=== PATIENT | female | born 1990 | race Caucasian/White ===

== ENCOUNTER 2017-04-16 14:32 | Emergency (ER) | payer BC ==
[2017-04-16] MEDS ORDERED: Lidocaine 1% 30 ML SDV INJECT ONE (15:09)
--- NOTE | 2017-04-16 15:11 | EDM.PDOC ---
ED HPI GENERAL MEDICAL PROBLEM - General Stated Complaint: KNEE IS CUT, [id number] Time Seen by Provider: 04/16/17 15:09 Source of Information: Reports: Patient History Limitations: Reports: No Limitations - History of Present Illness INITIAL COMMENTS - FREE TEXT/NARRATIVE: cut by glass [employer] Right Knee Pain Score (Numeric/FACES): 4 - Related Data Allergies Allergy/AdvReac Type Severity Reaction Status Date / Time No Known Allergies Allergy Verified 04/16/17 15:28 Home Meds: Home Meds . [No Known Home Meds] 04/16/17 [History] Review of Systems - Review of Systems Review Of Systems: ROS reveals no pertinent complaints other than HPI. ED EXAM, GENERAL - Physical Exam Exam: See Below Exam Limited By: No Limitations General Appearance: Alert, WD/WN, No Apparent Distress Ears: Hearing Grossly Normal Throat/Mouth: Normal Voice, No Airway Compromise Head: Atraumatic Neck: Non-Tender, Full Range of Motion Respiratory/Chest: No Respiratory Distress Cardiovascular: Regular Rate, Rhythm GI/Abdominal: Soft, Non-Tender Extremities: Other (right knee 2" lac, NV wnl, ) Neurological: Alert, Oriented, Normal Cognition, Normal Gait, No Motor/Sensory Deficits Psychiatric: Normal Affect, Normal Mood Skin Exam: Warm, Dry Lymphatic: No Adenopathy ED TRAUMA EXTREMITY PROCEDURES - Laceration/Wound Repair Right Knee Lac/Wound Length In cm: 4 (right knee) Appearance: Subcutaneous, Linear, Clean Distal NVT: Neuro & Vascular Intact, No Tendon Injury Anesthetic Type: Local Local Anesthesia - Lidocaine (Xylocaine): 1% Plain Local Anesthetic Volume: 5cc Skin Prep: Chlorhexidine (Hibiciens) Saline Irrigation (cc's): 20 Exploration/Debridement/Repair: Wound Explored, No Foreign Material Found Closed With: Sutures Suture Size: 4-0 Suture Type: Interrupted Sterile Dressing Applied: Nurse Tetanus Status Addressed: Yes Complications: No Course - Vital Signs Last Recorded V/S: Last Vital Signs Temp 37.2 C 04/16/17 15:14 Pulse 106 H 04/16/17 15:14 Resp 18 04/16/17 15:14 BP 131/85 04/16/17 15:14 Pulse Ox 100 04/16/17 15:14 - Orders/Labs/Meds Meds: Medications Discontinued Medications Generic Name Dose Route Start Last Admin Trade Name Freq PRN Reason Stop Dose Admin Lidocaine HCl 30 ml 04/16/17 15:09 04/16/17 15:28 Xylocaine-Mpf 1% INJECT 04/16/17 15:10 30 ml ONETIME ONE Administration Departure - Departure Time of Disposition: 15:39 Disposition: Home, Self-Care 01 Condition: Good Clinical Impression: Laceration of knee Qualifiers: Encounter type: initial encounter Laterality: right Qualified Code(s): S81.011A - Laceration without foreign body, right knee, initial encounter - Discharge Information Instructions: Laceration Care, Adult, [id number] Forms: ED Department Discharge Additional Instructions: 1) keep wound clean dry covered 2) recheck if wound appears infected 3) suture removal 10 days
[2017-04-16 15:15] VITALS: BP 131/85
== END 2017-04-16 15:47 | disposition home or self-care (01) ==
LOC: DL.ED 14:32
DX: S81.011A Laceration without foreign body, right knee, initial encounter (principal); W25.XXXA Contact with sharp glass, initial encounter
CPT/HCPCS: 12002; 99282

== ENCOUNTER 2021-05-10 09:09 | Inpatient (IN) | payer BC ==
[2021-05-10] MEDS ORDERED: Sodium Chloride 0.9% 10 ML Syringe FLUSH PRN (09:18)
[2021-05-10] MEDS ORDERED: Tranexamic Acid 1,000 MG in Sodium Chloride 0.9% 100 ML IV PRN (09:18)
[2021-05-10] MEDS ORDERED: Citric Acid/Sodium Citrate Solution 30 ML Cup PO ONE (09:18)
[2021-05-10] MEDS ORDERED: Oxytocin/Normal Saline 30 UNIT/500 ML BAG IV SCH (09:30)
[2021-05-10] MEDS ORDERED: Lactated Ringers 1,000 ML IV SCH ×2 (09:30→15:15)
[2021-05-10] MEDS ORDERED: Oxytocin/Normal Saline 60 UNIT/1,000 ML BAG ONE (09:55)
[2021-05-10] MEDS: Lactated Ringers 1,000 ML IV SCH ×3 (10:00→18:07)
[2021-05-10] MEDS ORDERED: ceFAZolin 2 GM in Premix Bag 1 BAG IV ONE (10:00)
[2021-05-10] MEDS ORDERED: Oxytocin/Normal Saline 30 UNIT/500 ML BAG IV ONE (12:59)
[2021-05-10] MEDS ORDERED: Ondansetron 4 MG/2 ML SDV IVPUSH PRN (15:10)
[2021-05-10] MEDS ORDERED: Carboprost Tromethamine 250 MCG/1 ML Amp IM PRN (15:10)
[2021-05-10] MEDS ORDERED: Misoprostol 400 MCG (4 X 100 MCG TAB) RECTAL PRN (15:10)
[2021-05-10] MEDS ORDERED: ePHEDrine 50 MG/ML SDV IVPUSH PRN (15:10)
[2021-05-10] MEDS ORDERED: diphenhydrAMINE 50 MG/ML SDV IVPUSH PRN (15:10)
[2021-05-10] MEDS ORDERED: Methylergonovine 0.2 MG/1 ML Amp IM PRN (15:10)
[2021-05-10] MEDS ORDERED: Acetaminophen 325 MG Tab PO PRN (15:10)
[2021-05-10] MEDS ORDERED: Naloxone 2 MG/2 ML Syringe IVPUSH PRN (15:10)
[2021-05-10] MEDS ORDERED: Lactated Ringers 1,000 ML IV ONE (17:00)
[2021-05-10] MEDS ORDERED: Dexamethasone 4 MG/ML SDV IV ONE (17:00)
[2021-05-10] MEDS ORDERED: Ondansetron 4 MG/2 ML SDV IV ONE (17:00)
[2021-05-10] MEDS ORDERED: Ketorolac 30 MG/ML SDV IVPUSH ONE (17:00)
[2021-05-10] MEDS ORDERED: Morphine PF 1 MG/ML Amp ITHECAL ONE (17:00)
[2021-05-10] MEDS: Simethicone 80 MG Tab.Chew PO SCH ×2 (18:06→21:17)
[2021-05-10] MEDS: Ketorolac 30 MG/ML SDV IVPUSH SCH (18:06)
[2021-05-10] MEDS: Docusate Sodium 100 MG Cap PO PRN (21:17)
[2021-05-11] MEDS: Ketorolac 30 MG/ML SDV IVPUSH SCH ×2 (01:02→06:32)
[2021-05-11] MEDS: Docusate Sodium 100 MG Cap PO PRN ×2 (09:25→20:32)
[2021-05-11] MEDS: Prenatal Multivitamin with Calcium/Folic Acid/Iron Tab PO SCH (09:25)
[2021-05-11] MEDS: Simethicone 80 MG Tab.Chew PO SCH ×4 (09:25→20:32)
[2021-05-11] MEDS: Acetaminophen/oxyCODONE 325-5 MG Tab PO PRN ×3 (09:26→20:30)
[2021-05-11] MEDS: Ibuprofen 800 MG Tab PO PRN ×2 (14:42→22:51)
[2021-05-12] MEDS: Acetaminophen/oxyCODONE 325-5 MG Tab PO PRN ×5 (00:34→20:47)
--- NOTE | 2021-05-12 02:01 | PCM.HPR ---
H & P Addendum review - H & P Addendum Review Date of Original H & P: 05/03/21 Date Reviewed: 05/10/21 Time Reviewed: 10:00 Patient was Examined: No Changes
--- NOTE | 2021-05-12 02:12 | PCM.PRNOTE ---
- Free Text/Narrative Note: Section Operative Report Date of Surgery: 05/10/2021 Surgeon: Carlyn Pineda MD Hand Quilter: Dania Abdul MD Pre-Operative Diagnosis: at 39w1d Breech presentation Borderline oligohydramnios Post-Operative Diagnosis: Same Procedure Performed: Primary low transverse section Anesthesia: Spinal EBL: 400 mL IVF: 1500 mL Drains: Sher catheter with 450 mL of urine output Specimens: None Complications: None apparent Findings: Normal uterus, tubes, and ovaries. Indication and Consent: The patient presented to floor today for scheduled at term due to catarino ech presentation and desire for primary . The patient understood that the risks of section include, but are not limited to, visceral or vascular injury, infection, blood loss and need for blood transfusion, prolonged hospitalization, and reoperation. The patient again stated understanding and desired to proceed. All questions were answered. Procedure in Detail: The patient was taken to the operating room where spinal anesthesia was placed and found to be adequate. 2 grams of cefazolin (Ancef) were given for infection prophylaxis. She was then prepped and draped in routine fashion in dorsal supine position with a left almanzar tilt. Sher catheter and pneumoboots were placed. A Pfannenstiel skin incision was made with a scalpel. The incision was carried down to the fascia sharply. The fascia was incised and extended laterally. The superior aspect of the fascia was grasped with Chloe clamps; the underlying rectus muscle and pyramidalis was dissected off with sharp and blunt technique. In a similar fashion, the inferior aspect of the fascia was elevated with Chloe clamps and the rectus muscle was dissected off. Hemostasis was achieved with the Bovie. The rectus musculature was in the midline down to the level of the pubic symphysis. Pre-peritoneal fatty tissue was bluntly dissected to expose the peritoneum. The peritoneum was found to be free of adherent bowel or bladder tissue and entered bluntly. The peritoneal opening was then extended superiorly and inferiorly to the bladder reflection with good visualization of the bladder. The Binh retractor was inserted. Intraabdominal survey revealed scant, clear peritoneal fluid and thinned-out lower uterine segment. The vesicouterine peritoneum was opened with a pickup and mets, and the bladder flap was developed. The lower uterine segment was incised with a scalpel. The amniotic sac was ruptured with an Allis clamp and clear fluid was noted. The uterine incision was extended bluntly with lateral and upward traction. The fetus was in breech position. The feet were extracted through the incision first. The rump was elevated out of the maternal pelvis, sacrum anterior in position, with special attention paid to avoid using the uterine incision as a fulcrum. The fetus was delivered to the level of the scapula. A blue towel was wrapped around the fetus and then the fetus was then rotated 90 degree to facilitate sweeping the anterior arm across its face to deliver through the incision. The fetus was then rotated 180 degrees to deliver the other arm in a similar fashion. The Gentle fundal pressure was applied to keep the fetus's neck in flexed position as it was delivered through the incision. The was delivered with minimal difficulty. Bulb suctioning of the infant's nose and mouth was performed on the operative field. Cord blood was collected. The cord was clamped and cut in standard fashion, and the infant was handed over to the awaiting nursery staff. IV oxytocin was initiated to facilitate uterine contractions. The placenta was delivered intact with manual message of the uterine fundus along with gentle cord traction. The inside of the uterus was gently wiped with a lap sponge to assure complete removal of remaining products of conception. The uterine incision was closed with 0 -Vicryl suture in a running locked fashion. A second imbricating layer of 0-Monocryl was also placed. A figure-of-8 suture was used along the right edge of the incision to achieve hemostasis. The incision was inspected and hemostasis was achieved. The ovaries and tubes were visualized and found to be normal. The uterus, tubes, and ovaries were returned to the abdominal cavity. The blood clots and fluid were wiped out of the abdomen and pelvis with moist laparotomy sponges. The uterine incision was re-inspected along with all other incised surfaces and good hemostasis was confirmed. The Binh retractor was removed. The fascia was then closed with 2-0 looped PDS suture with care not to include any underlying abdominal contents. The skin was closed with 4-0 Monocryl suture on a Amilcar needle in a subcuticular fashion. Sponge and instrument counts were reported as correct times two. Patient tolerated procedure well and was taken to PACU in stable condition. Carlyn Pineda MD
--- NOTE | 2021-05-12 02:21 | PCM.PNPP ---
- General Info Date of Service: 05/11/21 Subjective Update: POD#1. Patient is doing well. She has stood at the edge of the bed without difficulty. Sher is in place and urine output has been adequate. Tolerating a general diet. Pain is well controlled with medication. No fevers, chills, dizziness or lightheadedness. is going well. No concerns per patient or per nursing staff. Functional Status: Reports: Pain Controlled, Tolerating Diet. Denies: New Symptoms - Review of Systems General: Reports: No Symptoms HEENT: Reports: No Symptoms Pulmonary: Reports: No Symptoms Cardiovascular: Reports: No Symptoms Gastrointestinal: Reports: No Symptoms Genitourinary: Reports: No Symptoms Musculoskeletal: Reports: No Symptoms Skin: Reports: No Symptoms Neurological: Reports: No Symptoms - General Info Date of Service: 05/11/21 - Patient Data Vital Signs - Most Recent: Last Vital Signs Temp 36.9 C 05/12/21 00:00 Pulse 79 05/12/21 00:00 Resp 18 05/12/21 00:00 BP 120/73 05/12/21 00:00 Pulse Ox 98 05/11/21 08:00 Weight - Most Recent: 63.503 kg I&O - Last 24 Hours: Intake & Output 05/11/21 05/11/21 05/12/21 14:59 22:59 06:59 Output Total 500 Balance -500 Lab Results - Last 24 Hours: Laboratory Results - last 24 hr 05/11/21 Range/Units 06:17 WBC 14.9 H (5.0-10.0) 10^3/uL RBC 3.37 L (4.2-5.4) 10^6/uL Hgb 10.0 L D (12.0-16.0) g/dL Hct 30.3 L (37.0-47.0) % MCV 89.9 (80-100) fL MCH 29.7 (27.0-34.0) pg MCHC 33.0 (33.0-35.0) g/dL Plt Count 150 (150-450) 10^3/uL Med Orders - Current: Current Medications Acetaminophen (Acetaminophen 325 Mg Tab) 650 mg PO Q6H PRN PRN Reason: Mild Pain (1-3) or Fever Carboprost Tromethamine (Carboprost Tromethamine 250 Mcg/1 Ml Amp) 250 mcg IM ONETIME PRN PRN Reason: Bleeding Diphenhydramine HCl (Diphenhydramine 50 Mg/Ml Sdv) 25 mg IVPUSH Q6H PRN PRN Reason: Itching or Nausea Docusate Sodium (Docusate Sodium 100 Mg Cap) 100 mg PO Q12H PRN PRN Reason: Constipation Last Admin: 05/11/21 20:32 Dose: 100 mg Documented by: Ephedrine Sulfate (Ephedrine 50 Mg/Ml Sdv) 5 mg IVPUSH SEECOMMENT PRN PRN Reason: Other Tranexamic Acid 1,000 mg/ (Sodium Chloride) 110 mls @ 660 mls/hr IV ONETIME PRN PRN Reason: Bleeding Oxytocin/Sodium Chloride (Pitocin In Ns 30 Unit/500 Ml) 30 unit in 500 mls @ 2 mls/hr IV TITRATE HENRI; Protocol Last Titration: 05/10/21 16:00 Dose: 0 munits/min, 0 mls/hr Documented by: Lactated Ringer's (Ringers, Lactated) 1,000 mls @ 125 mls/hr IV ASDIRECTED HENRI Last Admin: 05/10/21 18:07 Dose: 125 mls/hr Documented by: Lactated Ringer's (Ringers, Lactated) 1,000 mls @ 500 mls/hr IV .BOLUS HENRI Lactated Ringer's (Ringers, Lactated) 1,000 mls @ 125 mls/hr IV ASDIRECTED HENRI Ibuprofen (Ibuprofen 800 Mg Tab) 800 mg PO Q8H PRN PRN Reason: Cramping Last Admin: 05/11/21 22:51 Dose: 800 mg Documented by: Methylergonovine Maleate (Methylergonovine 0.2 Mg/1 Ml Amp) 0.2 mg IM ONETIME PRN PRN Reason: Excessive Vaginal Bleeding Misoprostol (Misoprostol 400 Mcg (4 X 100 Mcg Tab)) 800 mcg RECTAL ASDIRECTED PRN PRN Reason: Excessive bleeding Naloxone HCl (Naloxone 2 Mg/2 Ml Syringe) 0.1 mg IVPUSH SEECOMMENT PRN PRN Reason: Respiratory Depression Ondansetron HCl (Ondansetron 4 Mg/2 Ml Sdv) 4 mg IVPUSH Q4H PRN PRN Reason: Nausea/Vomiting Oxycodone/Acetaminophen (Acetaminophen/Oxycodone 325-5 Mg Tab) 1 tab PO Q4H PRN PRN Reason: Pain (moderate 4-6) Last Admin: 05/11/21 14:42 Dose: 1 tab Documented by: Oxycodone/Acetaminophen (Acetaminophen/Oxycodone 325-5 Mg Tab) 2 tab PO Q4H PRN PRN Reason: Pain (moderate 4-6) Last Admin: 05/12/21 00:34 Dose: 2 tab Documented by: Prenat Multivit/[place]/Iron/Folic Ac ( Multivitamin With Calcium/Folic Acid/Iron Tab) 1 each PO DAILY [facility] Last Admin: 05/11/21 09:25 Dose: 1 each Documented by: Simethicone (Simethicone 80 Mg Tab.Chew) 160 mg PO QID [facility] Last Admin: 05/11/21 20:32 Dose: 160 mg Documented by: Sodium Chloride (Sodium Chloride 0.9% 10 Ml Syringe) 10 ml FLUSH ASDIRECTED PRN PRN Reason: Keep Vein Open Discontinued Medications Citric Acid/Sodium Citrate (Citric Acid/Sodium Citrate Solution 30 Ml Cup) 30 ml PO ONETIME ONE Stop: 05/10/21 09:19 Last Admin: 05/10/21 11:07 Dose: 30 ml Documented by: Dexamethasone (Dexamethasone 4 Mg/Ml Sdv) 8 mg IV .STK-MED ONE Stop: 05/10/21 17:01 Cefazolin Sodium/Dextrose 2 gm (/ Premix) 50 mls @ 100 mls/hr IV ONETIME ONE Stop: 05/10/21 10:29 Last Admin: 05/10/21 11:43 Dose: 100 mls/hr Documented by: Cefazolin Sodium/Dextrose (Ancef 2 Gm/50 Ml) Confirm Administered Dose 50 mls @ as directed .ROUTE .STK-MED ONE Stop: 05/10/21 09:55 Oxytocin/Sodium Chloride (Pitocin In Ns 30 Unit/500 Ml) Confirm Administered Dose 60 unit in 1,000 mls @ as directed .ROUTE .STK-MED ONE Stop: 05/10/21 09:56 Oxytocin/Sodium Chloride (Pitocin In Ns 30 Unit/500 Ml) 30 unit in 500 mls @ as directed IV .STK-MED ONE Stop: 05/10/21 13:00 Lactated Ringer's (Ringers, Lactated) 1,000 mls @ as directed IV .STK-MED ONE Stop: 05/10/21 17:01 Ketorolac Tromethamine (Ketorolac 30 Mg/Ml Sdv) 15 mg IVPUSH Q6H HENRI Stop: 05/11/21 06:31 Last Admin: 05/11/21 06:32 Dose: 15 mg Documented by: Ketorolac Tromethamine (Ketorolac 30 Mg/Ml Sdv) 30 mg IVPUSH .STK-MED ONE Stop: 05/10/21 17:01 Morphine Sulfate (Morphine Pf 1 Mg/Ml Amp) 0.2 mg ITHECAL .STK-MED ONE Stop: 05/10/21 17:01 Ondansetron HCl (Ondansetron 4 Mg/2 Ml Sdv) 4 mg IV .STK-MED ONE Stop: 05/10/21 17:01 - Interaction Disposition, : in Room with Family Infant Interaction: Holding Infant Feeding: Breastfed ; Nursed Well Support Person: Significant Other - Recovery Exam Fundal Tone: Firm Fundal Level: 2 Fingerbreadths Below Umbilicus Fundal Placement: Midline Lochia Amount: Scant Lochia Color: Rubra/Red Perineum Description: Intact, Minimal Bruising/Swelling Episiotomy/Laceration: None Bladder Status: Voiding - Exam General: Alert, Oriented Lungs: Clear to Auscultation, Normal Respiratory Effort Cardiovascular: Regular Rate, Regular Rhythm, No Murmurs Extremities: Pedal Edema (Trace bilaterally) Skin: Warm, Dry, Intact Wound/Incisions: Dressing Dry and Intact Psy/Mental Status: Alert, Normal Affect, Normal Mood - Problem List & Annotations (1) Breech presentation SNOMED Code(s): 0992020 Code(s): O32.1XX0 - MATERNAL CARE FOR BREECH PRESENTATION, UNSP Status: Acute Current Visit: Yes (2) Status post delivery SNOMED Code(s): 382597359, 435554569 Code(s): Z98.891 - HISTORY OF UTERINE SCAR FROM PREVIOUS SURGERY Status: Acute Current Visit: Yes (3) Anemia in preg-unspec SNOMED Code(s): 80298565 Code(s): O99.019 - ANEMIA COMPLICATING , UNSPECIFIED TRIMESTER Status: Acute Current Visit: Yes (4) care SNOMED Code(s): 844968641, 36421539, 365656838, 621083427 Code(s): Z34.90 - ENCNTR FOR SUPRVSN OF NORMAL , UNSP, UNSP TRIMESTER Status: Acute Current Visit: Yes - Problem List Review Problem List Initiated/Reviewed/Updated: Yes - My Orders Last 24 Hours: My Active Orders 05/11/21 06:17 RPR (SYPHILIS SERO) W/ RFLX [REF] Routine 05/11/21 Breakfast Regular Diet [DIET] 05/11/21 09:00 Vit with Ca/FA/Iron [ Plus Iron] 1 each PO DAILY 05/11/21 14:00 Ibuprofen [Motrin] 800 mg PO Q8H PRN - Assessment Assessment:: 31-year-old, now , POD#1 s/p primary low transverse section at 39w1d for breech presentation and borderline oligohydramnios - Plan Plan:: 1. Continue routine cares 2. Initiate ferrous sulfate for anemia 3. well. 4. Anticipate discharge 05/13/2021 Carlyn Pineda MD
[2021-05-12] MEDS: Docusate Sodium 100 MG Cap PO PRN ×2 (08:27→20:48)
[2021-05-12] MEDS: Simethicone 80 MG Tab.Chew PO SCH ×4 (08:27→20:48)
[2021-05-12] MEDS: Ferrous Sulfate 325 MG Tab PO SCH (08:28)
[2021-05-12] MEDS: Ibuprofen 800 MG Tab PO PRN ×2 (08:30→17:51)
[2021-05-12] MEDS: Prenatal Multivitamin with Calcium/Folic Acid/Iron Tab PO SCH (08:31)
--- NOTE | 2021-05-12 10:12 | PCM.PNPP ---
- General Info Date of Service: 05/12/21 Subjective Update: POD#2. Patient has been ambulating without difficulty. No dizziness, lightheadedness, fever or chills. Tolerating a general diet. Voiding and passing gas. Vaginal bleeding is minimal. Pain is well controlled. is going well. No concerns per patient. Functional Status: Reports: Pain Controlled, Tolerating Diet, Ambulating, Urinating. Denies: New Symptoms - Review of Systems General: Reports: No Symptoms HEENT: Reports: No Symptoms Pulmonary: Reports: No Symptoms Cardiovascular: Reports: No Symptoms Gastrointestinal: Reports: No Symptoms Genitourinary: Reports: No Symptoms Musculoskeletal: Reports: No Symptoms Skin: Reports: No Symptoms Neurological: Reports: No Symptoms Psychiatric: Reports: No Symptoms - General Info Date of Service: 05/12/21 - Patient Data Vital Signs - Most Recent: Last Vital Signs Temp 36.9 C 05/12/21 00:00 Pulse 79 05/12/21 00:00 Resp 18 05/12/21 00:00 BP 120/73 05/12/21 00:00 Pulse Ox 98 05/11/21 08:00 Weight - Most Recent: 63.503 kg Med Orders - Current: Current Medications Acetaminophen (Acetaminophen 325 Mg Tab) 650 mg PO Q6H PRN PRN Reason: Mild Pain (1-3) or Fever Carboprost Tromethamine (Carboprost Tromethamine 250 Mcg/1 Ml Amp) 250 mcg IM ONETIME PRN PRN Reason: Bleeding Diphenhydramine HCl (Diphenhydramine 50 Mg/Ml Sdv) 25 mg IVPUSH Q6H PRN PRN Reason: Itching or Nausea Docusate Sodium (Docusate Sodium 100 Mg Cap) 100 mg PO Q12H PRN PRN Reason: Constipation Last Admin: 05/12/21 08:27 Dose: 100 mg Documented by: Ephedrine Sulfate (Ephedrine 50 Mg/Ml Sdv) 5 mg IVPUSH SEECOMMENT PRN PRN Reason: Other Ferrous Sulfate (Ferrous Sulfate 325 Mg Tab) 325 mg PO WITHBREAKFAST HENRI Last Admin: 05/12/21 08:28 Dose: 325 mg Documented by: Tranexamic Acid 1,000 mg/ (Sodium Chloride) 110 mls @ 660 mls/hr IV ONETIME PRN PRN Reason: Bleeding Oxytocin/Sodium Chloride (Pitocin In Ns 30 Unit/500 Ml) 30 unit in 500 mls @ 2 mls/hr IV TITRATE HENRI; Protocol Last Titration: 05/10/21 16:00 Dose: 0 munits/min, 0 mls/hr Documented by: Lactated Ringer's (Ringers, Lactated) 1,000 mls @ 125 mls/hr IV ASDIRECTED HENRI Last Admin: 05/10/21 18:07 Dose: 125 mls/hr Documented by: Lactated Ringer's (Ringers, Lactated) 1,000 mls @ 500 mls/hr IV .BOLUS HENRI Lactated Ringer's (Ringers, Lactated) 1,000 mls @ 125 mls/hr IV ASDIRECTED HENRI Ibuprofen (Ibuprofen 800 Mg Tab) 800 mg PO Q8H PRN PRN Reason: Cramping Last Admin: 05/12/21 08:30 Dose: 800 mg Documented by: Methylergonovine Maleate (Methylergonovine 0.2 Mg/1 Ml Amp) 0.2 mg IM ONETIME PRN PRN Reason: Excessive Vaginal Bleeding Misoprostol (Misoprostol 400 Mcg (4 X 100 Mcg Tab)) 800 mcg RECTAL ASDIRECTED PRN PRN Reason: Excessive bleeding Naloxone HCl (Naloxone 2 Mg/2 Ml Syringe) 0.1 mg IVPUSH SEECOMMENT PRN PRN Reason: Respiratory Depression Ondansetron HCl (Ondansetron 4 Mg/2 Ml Sdv) 4 mg IVPUSH Q4H PRN PRN Reason: Nausea/Vomiting Oxycodone/Acetaminophen (Acetaminophen/Oxycodone 325-5 Mg Tab) 1 tab PO Q4H PRN PRN Reason: Pain (moderate 4-6) Last Admin: 05/11/21 14:42 Dose: 1 tab Documented by: Oxycodone/Acetaminophen (Acetaminophen/Oxycodone 325-5 Mg Tab) 2 tab PO Q4H PRN PRN Reason: Pain (moderate 4-6) Last Admin: 05/12/21 05:27 Dose: 2 tab Documented by: Prenat Multivit/[place]/Iron/Folic Ac ( Multivitamin With Calcium/Folic Acid/Iron Tab) 1 each PO DAILY [facility] Last Admin: 05/12/21 08:31 Dose: 1 each Documented by: Simethicone (Simethicone 80 Mg Tab.Chew) 160 mg PO QID [facility] Last Admin: 05/12/21 08:27 Dose: 160 mg Documented by: Sodium Chloride (Sodium Chloride 0.9% 10 Ml Syringe) 10 ml FLUSH ASDIRECTED PRN PRN Reason: Keep Vein Open Discontinued Medications Citric Acid/Sodium Citrate (Citric Acid/Sodium Citrate Solution 30 Ml Cup) 30 ml PO ONETIME ONE Stop: 05/10/21 09:19 Last Admin: 05/10/21 11:07 Dose: 30 ml Documented by: Dexamethasone (Dexamethasone 4 Mg/Ml Sdv) 8 mg IV .STK-MED ONE Stop: 05/10/21 17:01 Cefazolin Sodium/Dextrose 2 gm (/ Premix) 50 mls @ 100 mls/hr IV ONETIME ONE Stop: 05/10/21 10:29 Last Admin: 05/10/21 11:43 Dose: 100 mls/hr Documented by: Cefazolin Sodium/Dextrose (Ancef 2 Gm/50 Ml) Confirm Administered Dose 50 mls @ as directed .ROUTE .STK-MED ONE Stop: 05/10/21 09:55 Oxytocin/Sodium Chloride (Pitocin In Ns 30 Unit/500 Ml) Confirm Administered Dose 60 unit in 1,000 mls @ as directed .ROUTE .STK-MED ONE Stop: 05/10/21 09:56 Oxytocin/Sodium Chloride (Pitocin In Ns 30 Unit/500 Ml) 30 unit in 500 mls @ as directed IV .STK-MED ONE Stop: 05/10/21 13:00 Lactated Ringer's (Ringers, Lactated) 1,000 mls @ as directed IV .STK-MED ONE Stop: 05/10/21 17:01 Ketorolac Tromethamine (Ketorolac 30 Mg/Ml Sdv) 15 mg IVPUSH Q6H [facility] Stop: 05/11/21 06:31 Last Admin: 05/11/21 06:32 Dose: 15 mg Documented by: Ketorolac Tromethamine (Ketorolac 30 Mg/Ml Sdv) 30 mg IVPUSH .STK-MED ONE Stop: 05/10/21 17:01 Morphine Sulfate (Morphine Pf 1 Mg/Ml Amp) 0.2 mg ITHECAL .STK-MED ONE Stop: 05/10/21 17:01 Ondansetron HCl (Ondansetron 4 Mg/2 Ml Sdv) 4 mg IV .STK-MED ONE Stop: 05/10/21 17:01 - Infant Interaction Infant Disposition, : [place] in Room with Family Interaction: Holding Infant Feeding: Breastfed ; Nursed Well Support Person: Significant Other - Recovery Exam Fundal Tone: Firm Fundal Level: 2 Fingerbreadths Below Umbilicus Fundal Placement: Midline Lochia Amount: Scant Lochia Color: Rubra/Red Perineum Description: Intact, Minimal Bruising/Swelling Episiotomy/Laceration: None Bladder Status: Voiding - Exam General: Alert, Oriented Lungs: Clear to Auscultation, Normal Respiratory Effort Cardiovascular: Regular Rate, Regular Rhythm, No Murmurs GI/Abdominal Exam: Soft, Non-Tender Extremities: Normal Inspection, No Pedal Edema Skin: Warm, Dry, Intact Wound/Incisions: Healing Well, No Drainage Neurological: No New Focal Deficit - Problem List & Annotations (1) Breech presentation SNOMED Code(s): 5668089 Code(s): O32.1XX0 - MATERNAL CARE FOR BREECH PRESENTATION, UNSP Status: Acute Current Visit: Yes (2) Status post delivery SNOMED Code(s): 087390994, 307371553 Code(s): Z98.891 - HISTORY OF UTERINE SCAR FROM PREVIOUS SURGERY Status: Acute Current Visit: Yes (3) Anemia in preg-unspec SNOMED Code(s): 36178001 Code(s): O99.019 - ANEMIA COMPLICATING , UNSPECIFIED TRIMESTER Status: Acute Current Visit: Yes (4) care SNOMED Code(s): 536337395, 42393000, 281743341, 647130529 Code(s): Z34.90 - ENCNTR FOR SUPRVSN OF NORMAL , UNSP, UNSP TRIMESTER Status: Acute Current Visit: Yes - Problem List Review Problem List Initiated/Reviewed/Updated: Yes - My Orders Last 24 Hours: My Active Orders 05/11/21 14:00 Ibuprofen [Motrin] 800 mg PO Q8H PRN 05/12/21 08:00 Ferrous Sulfate 325 mg PO WITHBREAKFAST - Assessment Assessment:: 31-year-old, now , POD#2 s/p primary low transverse section at 39w1d for breech presentation and borderline oligohydramnios - Plan Plan:: 1. Continue routine cares 2. Continue ferrous sulfate. 3. well. 4. Anticipate discharge 05/13/2021. Dr. Westfall will assume care in my absence. Carlyn Pineda MD
[2021-05-13] MEDS: Acetaminophen/oxyCODONE 325-5 MG Tab PO PRN ×3 (00:49→09:49)
[2021-05-13] MEDS: Ibuprofen 800 MG Tab PO PRN (04:08)
[2021-05-13] MEDS: Simethicone 80 MG Tab.Chew PO SCH ×2 (09:48→17:00)
[2021-05-13] MEDS: Prenatal Multivitamin with Calcium/Folic Acid/Iron Tab PO SCH (09:49)
[2021-05-13] MEDS: Docusate Sodium 100 MG Cap PO PRN (09:49)
[2021-05-13] MEDS: Ferrous Sulfate 325 MG Tab PO SCH (09:49)
--- NOTE | 2021-05-13 10:32 | PCM.PNPP ---
- General Info Date of Service: 05/13/21 (POD/PPD # 3 S/P Primary section) Functional Status: Reports: Pain Controlled, Tolerating Diet, Ambulating, Urinating - Review of Systems General: Reports: No Symptoms HEENT: Reports: No Symptoms Pulmonary: Reports: No Symptoms Cardiovascular: Reports: No Symptoms Gastrointestinal: Reports: No Symptoms Genitourinary: Reports: No Symptoms Musculoskeletal: Reports: No Symptoms Skin: Reports: No Symptoms Neurological: Reports: No Symptoms Psychiatric: Reports: No Symptoms - General Info Date of Service: 05/13/21 (POD/PPD # 3 S/P Primary section) - Patient Data Vital Signs - Most Recent: Last Vital Signs Temp 98.4 F 05/13/21 07:44 Pulse 94 05/13/21 07:44 Resp 18 05/13/21 07:44 BP 127/76 05/13/21 07:44 Pulse Ox 99 05/13/21 07:44 Weight - Most Recent: 140 lb I&O - Last 24 Hours: Intake & Output 05/12/21 05/13/21 05/13/21 22:59 06:59 14:59 Intake Total 450 450 240 Balance 450 450 240 Lab Results - Last 24 Hours: Laboratory Results - last 24 hr 05/11/21 Range/Units 06:17 RPR Non-reac (Non-Reac) Med Orders - Current: Current Medications Acetaminophen (Acetaminophen 325 Mg Tab) 650 mg PO Q6H PRN PRN Reason: Mild Pain (1-3) or Fever Carboprost Tromethamine (Carboprost Tromethamine 250 Mcg/1 Ml Amp) 250 mcg IM ONETIME PRN PRN Reason: Bleeding Diphenhydramine HCl (Diphenhydramine 50 Mg/Ml Sdv) 25 mg IVPUSH Q6H PRN PRN Reason: Itching or Nausea Docusate Sodium (Docusate Sodium 100 Mg Cap) 100 mg PO Q12H PRN PRN Reason: Constipation Last Admin: 05/13/21 09:49 Dose: 100 mg Documented by: Ephedrine Sulfate (Ephedrine 50 Mg/Ml Sdv) 5 mg IVPUSH SEECOMMENT PRN PRN Reason: Other Ferrous Sulfate (Ferrous Sulfate 325 Mg Tab) 325 mg PO WITHBREAKFAST HENRI Last Admin: 05/13/21 09:49 Dose: 325 mg Documented by: Tranexamic Acid 1,000 mg/ (Sodium Chloride) 110 mls @ 660 mls/hr IV ONETIME PRN PRN Reason: Bleeding Oxytocin/Sodium Chloride (Pitocin In Ns 30 Unit/500 Ml) 30 unit in 500 mls @ 2 mls/hr IV TITRATE HENRI; Protocol Last Titration: 05/10/21 16:00 Dose: 0 munits/min, 0 mls/hr Documented by: Lactated Ringer's (Ringers, Lactated) 1,000 mls @ 125 mls/hr IV ASDIRECTED HENRI Last Admin: 05/10/21 18:07 Dose: 125 mls/hr Documented by: Lactated Ringer's (Ringers, Lactated) 1,000 mls @ 500 mls/hr IV .BOLUS HENRI Lactated Ringer's (Ringers, Lactated) 1,000 mls @ 125 mls/hr IV ASDIRECTED HENRI Ibuprofen (Ibuprofen 800 Mg Tab) 800 mg PO Q8H PRN PRN Reason: Cramping Last Admin: 05/13/21 04:08 Dose: 800 mg Documented by: Methylergonovine Maleate (Methylergonovine 0.2 Mg/1 Ml Amp) 0.2 mg IM ONETIME PRN PRN Reason: Excessive Vaginal Bleeding Misoprostol (Misoprostol 400 Mcg (4 X 100 Mcg Tab)) 800 mcg RECTAL ASDIRECTED PRN PRN Reason: Excessive bleeding Naloxone HCl (Naloxone 2 Mg/2 Ml Syringe) 0.1 mg IVPUSH SEECOMMENT PRN PRN Reason: Respiratory Depression Ondansetron HCl (Ondansetron 4 Mg/2 Ml Sdv) 4 mg IVPUSH Q4H PRN PRN Reason: Nausea/Vomiting Oxycodone/Acetaminophen (Acetaminophen/Oxycodone 325-5 Mg Tab) 1 tab PO Q4H PRN PRN Reason: Pain (moderate 4-6) Last Admin: 05/11/21 14:42 Dose: 1 tab Documented by: Oxycodone/Acetaminophen (Acetaminophen/Oxycodone 325-5 Mg Tab) 2 tab PO Q4H PRN PRN Reason: Pain (moderate 4-6) Last Admin: 05/13/21 09:49 Dose: 2 tab Documented by: Prenat Multivit/Supervisor Microfilm Duplicating Unit/Iron/Folic Ac ( Multivitamin With Calcium/Folic Acid/Iron Tab) 1 each PO DAILY HENRI Last Admin: 05/13/21 09:49 Dose: 1 each Documented by: Simethicone (Simethicone 80 Mg Tab.Chew) 160 mg PO QID [facility] Last Admin: 05/13/21 09:48 Dose: 160 mg Documented by: Sodium Chloride (Sodium Chloride 0.9% 10 Ml Syringe) 10 ml FLUSH ASDIRECTED PRN PRN Reason: Keep Vein Open Discontinued Medications Citric Acid/Sodium Citrate (Citric Acid/Sodium Citrate Solution 30 Ml Cup) 30 ml PO ONETIME ONE Stop: 05/10/21 09:19 Last Admin: 05/10/21 11:07 Dose: 30 ml Documented by: Dexamethasone (Dexamethasone 4 Mg/Ml Sdv) 8 mg IV .STK-MED ONE Stop: 05/10/21 17:01 Cefazolin Sodium/Dextrose 2 gm (/ Premix) 50 mls @ 100 mls/hr IV ONETIME ONE Stop: 05/10/21 10:29 Last Admin: 05/10/21 11:43 Dose: 100 mls/hr Documented by: Cefazolin Sodium/Dextrose (Ancef 2 Gm/50 Ml) Confirm Administered Dose 50 mls @ as directed .ROUTE .STK-MED ONE Stop: 05/10/21 09:55 Oxytocin/Sodium Chloride (Pitocin In Ns 30 Unit/500 Ml) Confirm Administered Dose 60 unit in 1,000 mls @ as directed .ROUTE .STK-MED ONE Stop: 05/10/21 09:56 Oxytocin/Sodium Chloride (Pitocin In Ns 30 Unit/500 Ml) 30 unit in 500 mls @ as directed IV .STK-MED ONE Stop: 05/10/21 13:00 Lactated Ringer's (Ringers, Lactated) 1,000 mls @ as directed IV .STK-MED ONE Stop: 05/10/21 17:01 Ketorolac Tromethamine (Ketorolac 30 Mg/Ml Sdv) 15 mg IVPUSH Q6H [facility] Stop: 05/11/21 06:31 Last Admin: 05/11/21 06:32 Dose: 15 mg Documented by: Ketorolac Tromethamine (Ketorolac 30 Mg/Ml Sdv) 30 mg IVPUSH .STK-MED ONE Stop: 05/10/21 17:01 Morphine Sulfate (Morphine Pf 1 Mg/Ml Amp) 0.2 mg ITHECAL .STK-MED ONE Stop: 05/10/21 17:01 Ondansetron HCl (Ondansetron 4 Mg/2 Ml Sdv) 4 mg IV .STK-MED ONE Stop: 05/10/21 17:01 - Infant Interaction Infant Disposition, : in Room with Family Infant Interaction: Holding Infant Infant Feeding: Breastfed ; Nursed Well Support Person: Significant Other - Recovery Exam Fundal Tone: Firm Fundal Level: 1 Fingerbreadths Below Umbilicus Fundal Placement: Midline Lochia Amount: Scant Lochia Color: Rubra/Red Perineum Description: Intact, Minimal Bruising/Swelling Episiotomy/Laceration: None Bladder Status: Voiding Urinary Elimination: Voided - Exam General: Alert, Oriented, Cooperative, No Acute Distress HEENT: Pupils Equal, Pupils Reactive, EOMI, Mucous Membr. Moist/[place] Neck: Supple Lungs: Clear to Auscultation, Normal Respiratory Effort Cardiovascular: Regular Rate, Regular Rhythm, No Murmurs GI/Abdominal Exam: Normal Bowel Sounds, Soft, Non-Tender, No Distention Extremities: Normal Inspection, Normal Range of Motion, Non-Tender Skin: Warm, Dry, Intact Wound/Incisions: Healing Well, Dressing Dry and Intact, No Drainage Neurological: No New Focal Deficit, Normal Gait, Normal Speech, Normal Tone Psy/Mental Status: Alert, Normal Affect, Normal Mood - Problem List Review Problem List Initiated/Reviewed/Updated: Yes - My Orders Last 24 Hours: My Active Orders 05/13/21 10:26 Ready for Discharge [RC] PER UNIT ROUTINE - Assessment Assessment:: 31-year-old, now , POD#3 s/p primary low transverse section at 39w1d for breech presentation and borderline oligohydramnios - Plan Plan:: 1. Discharge to home 2. Follow-up next week with [facility] 3. Follow-up with Dr. Pineda at 6 week check-up. 4. PNV and Iron at home 5. Ibuprofen and Percocet for pain control.
--- NOTE | 2021-05-13 13:46 | DISCH ---
INDICATION FOR ADMISSION: Ms. Ron is a 31-year-old 1, para 0 female at 39-1/7 weeks' gestation, who reported to Labor and Delivery at [facility] with history of borderline oligohydramnios and breech presentation. They were not comfortable doing an external cephalic version, so a primary section was called. She tolerated the quite well. She had delivery of a viable female infant, weighing 6 pounds 11 ounces, length 19-1/2 inches with score of 6 at one minute, 9 at five minute. The patient did quite well throughout the rest of the procedure. She went from the operating room to recovery and then to the floor. The infant went to the nursery. No complications occurred throughout her hospital stay. She is afebrile. Vital signs are stable. She tolerated her diet well and ambulated quite well. She had minimal lochia. Her incision did well with no erythema or drainage noted. No other complications occurred throughout her hospital stay. She was discharged to home on postop day/ day #3. LABORATORY AND DIAGNOSTIC STUDIES: 05/10/2021, WBC 10.3, hemoglobin 13.2, hematocrit 39.6, platelet count 166,000. Syphilis screen was negative, nonreactive. COVID test was negative. 05/11/2021, WBC 14.9, hemoglobin 10.0, hematocrit was 30.3, platelet count 150,000. Blood type A positive. Antibody screen negative. DISCHARGE INSTRUCTIONS: 1. Discharged to home. 2. Follow up with the [facility] in [place] next week for evaluation of the . 3. Follow up with Dr. Pineda for 6-week checkup or sooner if problems develop. 4. No douching, tampons, intercourse for 6 weeks. 5. Discharge instructions including activity, followup, medications, diet, and wound care were discussed with the patient. She understands these and is willing to comply with these. 6. Ibuprofen 800 mg 1 tablet every 6 to 8 hours p.r.n. for pain. 7. Percocet 5/325 mg 1 tablet every 6 to 8 hours p.r.n. for pain. 8. vitamin and iron daily. DISCHARGE DIAGNOSES: 1. 39-1/7 week intrauterine . 2. Borderline oligohydramnios. 3. Breech presentation. 4. Declined external cephalic version. 5. Primary low transverse section via Pfannenstiel skin incision. 6. Delivery of a viable female infant weighing 6 pounds 11 ounces, 19-1/2 inches long with scores of 6 at one minute, 9 at five minutes. 7. Spinal anesthesia with Duramorph. 8. Acute anemia secondary to blood loss. [facility] /[id number]
== END 2021-05-13 14:00 | disposition home or self-care (01) | DRG 540 ==
LOC: DL.OB 09:09 → OBSVTOIN 09:09 → DL.MS 10:40
PROVIDERS: ADMIT Family Medicine; ATTEND Family Medicine
PROC: 10D00Z1 Extraction of Products of Conception, Low, Open Approach (ICD-10-PCS; principal; 2021-05-10)
DX: O32.1XX0 Maternal care for breech presentation, not applicable or unspecified (principal); Z37.0 Single live birth; O41.03X0 Oligohydramnios, third trimester, not applicable or unspecified; O99.02 Anemia complicating childbirth; D62 Acute posthemorrhagic anemia; Z20.822 Contact with and (suspected) exposure to COVID-19; Z3A.39 39 weeks gestation of pregnancy
CPT/HCPCS: 01961; 36415; 59025; 85025; 85027; 86592; 86850; 86900; 86901; A9270-GY; J0690; J1100; J1885; J2274; J2405; J2590; J7120; U0002